=== PATIENT | male | born 1950 | race Caucasian/White ===

== ENCOUNTER → 2021-04-20 | Outpatient (CLI) | payer MEDICARE ==
[~2021-04-20] MED LIST: DEXAMETHASONE PRES.FREE 10 MG/ML VIAL. ONE; IOHEXOL 180 MG/ML 10 ML VIAL. ONE; MAGN250T10 PO; VITA400T6 PO; VITA80003 PO; ZINC50TA33 PO
--- NOTE | 2021-04-20 09:45 | PDOC1 ---
INITIAL PAIN CONSULT DATE OF SERVICE: DOS: DATE: 04/20/21 TIME: 09:40 CHIEF COMPLAINT: Chief Complaint: Low back and right lower extremity pain HISTORY OF PRESENT ILLNESS: 70-year-old male presents with history of pain low back right lower extremity for many years but worse over the past 2 to 3 months without any specific injury or accident that he is aware of pain increasing low back rating the right lower extremity posterior gluteus posterior thigh posterior calf with some numbness in the knee as well as some lateral pain on the leg mostly in the posterior aspect patient reports is worse with walking standing change positions exercising patient plays recreational basketball at least once a week and has been bothering him causing some significant pain in the back and the leg limiting his ability to perform activities patient reports it wakes him from sleep least once a night side effect his bowel bladder control does affect his ability to walk although is not use any assistive devices patient has had physical therapy in the past and is doing exercises with this as well currently also has had epidural injections about 5 years ago when he had some similar symptoms were on his left side which resolved the problem patient has taken recent steroid pack which helped the pain decreased to a moderate extent as well patient reports his disability rating 0-10 10 being the worst is a 4 with family home responsibilities and self-care 7 with recreation and occupation 3 with social activity 0 sexual behavior and life support activities patient did have an MRI scan lumbar spine showing multilevel degenerative changes with the moderate degenerative central spinal stenosis at L3-4 and greatest neuroforaminal narrowing of moderate to severe degree on the right at L5-S1. Patient reports the pain is stabbing and throbbing in the back shooting in the right lower extremity can be intermittent intensity but always present changes with activity worse with standing walking greater than 15 to 20 minutes tingling and numbness in the leg especially in the knee radiating and aching in the back. Patient reports no loss of motor function no bowel or bladder incontinence but significant debility of the right lower extremity. PAST MEDICAL HISTORY: PMH: Arthritis, hearing loss, Mnire's disease PREVIOUS SURGERIES: Past Surgical Hx: No previous surgery CURRENT MEDICATIONS: Current Meds: Active Scripts Medications Dose Route/Sig Max Daily Dose Days Date Category Magnesium (Magnesium Oxide) 250 Mg Tablet 1 Tab PO DAILY 30 04/20/21 Reported Vitamin E (Vitamin E Mixed) 400 Unit Tablet 1 Tab PO QHS 30 04/20/21 Reported Vitamin A 2,400 Mcg Capsule Unknown Dose PO DAILY 04/20/21 Reported Zinc (Zinc Amino Acid Chelate) 50 Mg Tablet 50 Mg PO DAILY 04/20/21 Reported ALLERGIES; Allergies: Coded Allergies: No Known Drug Allergies (Unverified , 04/20/21) FAMILY HISTORY: Family Hx: No major medical problems or conditions he is aware of. SOCIAL HISTORY: Social Hx: Patient is under alcohol does not smoke not use any illegal illicit recreational drugs lives with spouse is semiretired lives in [facility] REVIEW OF SYSTEMS: ROS: Positive for those items mentioned in history of present illness, all systems are reviewed, otherwise negative ,and are complete full and well-documented on patient's chart. PHYSICAL EXAM: VS: Blood pressure is 149/89 pulse 57 respirations 20 temperature 98.0 F height is 5 feet 9 inches weight is 188 pounds. PE: PHYSICAL EXAMINATION: GENERAL: The patient is awake, alert, oriented, appropriate, very pleasant in demeanor HEENT: Shows normocephalic, atraumatic. Extraocular movements are intact and symmetrical. Oral cavity: Mucous membranes moist and pink. Dentition is intact. NECK: Shows anterior throat supple without palpable lymphadenopathy noted. Swallow reflex symmetrical. CHEST: Shows normal on inspection. Breath sounds are clear bilaterally, distant no rales rhonchi wheezes auscultated. HEART: Shows S1, S2 clear. No murmurs auscultated. ABDOMEN: Soft, nontender, nondistended. No palpable organomegaly is noted. BACK: Shows spine grossly in the midline. Normal-appearing cervical lordotic curvature. There is slightly increased thoracic kyphosis, some minor flattening of the lumbar lordotic curvature. Lumbar paraspinous muscles show symmetrical on inspection, on palpation shows some moderate tenderness diffusely throughout the upper, middle and lower distribution of the paraspinous muscles bilaterally and also into the lower thoracic paraspinous musculature, firm and tender, but without specific trigger points, without radiation of pain. The patient has good rotational motion of the lumbar spine, both laterally as well as extension and flexion without significant difficulty. No tenderness over the spinous processes, sacrum or sacroiliac regions. EXTREMITIES: Lower extremities show deep tendon reflexes 2+ in the patellar and tendo calcaneus tendons. Motor exam is 4 on a scale of 5 with right dorsiflexion, extension, quadriceps and hamstring flexion and 5/5 on the left. Peripheral pulses are 2+ posterior tibial. No peripheral edema is noted bilaterally. Lower extremities are warm and dry to touch, equal in color and appearance. Straight leg raise noted to be positive on the right about 45 degrees, left side is []. Gaenslen's and Dionisio's maneuvers are negative bilaterally. The patient is able to stand, stand on his toes without significant difficulty or loss of balance, walks with a slight favoring gait does appear to favor the right lower extremity mildly but without any assistive devices to ambulate. SKIN: Shows warm and dry, good turgor. No edema. No sores, rashes or bruising throughout. IMPRESSION: Impression: 70-year-old male with long history of low back and lower extremity pain, worse over the past 2 to 3 months. MRI scan lumbar spine as noted Arthritis Hearing loss Plan: Options were discussed the patient including continued physical therapies, medication management as well as interventional techniques. Patient would like to pursue interventional techniques. We discussed a lumbar epidural steroid injection using descriptions as well as anatomical models to describe the procedure. Risks were discussed including but not limited to: Bleeding, infection, possibility of epidural hematoma and subsequent neurological compromise, dural puncture, headaches, spinal cord and/or nerve damage, side effects of steroid medication, and poor results regarding pain control. Patient understands and wished to proceed. Patient will return to the clinic in approximately 2 weeks for follow-up, was counseled as to return appointment, activity level, and side effect to be aware of. Procedure is lumbar epidural steroid injection under local anesthetic using sterile prep and drape at the L5-S1 level using C-arm fluoroscopic guidance in both AP and lateral views medications injected is 20 mg dexamethasone +10mL preservative-free normal saline and 2 mL contrast- condition at discharge is stable patient tolerated procedure well had no complications. RAMIRO HEARD MD Apr 20, 2021 09:45
--- NOTE | 2021-04-20 09:46 | PDOC4 ---
Procedure Note: ICD 10 Code: ICD 10 Code: M54.17 M5 1.87 M4 8.07 Procedure Note: Patient was consented for lumbar epidural steroid injection with fluoroscopic guidance. Risks were discussed including but not limited to: Bleeding, infection, possibility of epidural hematoma and subsequent neurological compromise, dural puncture, headaches, spinal cord and/or nerve damage, side effects of steroid medication, and poor results regarding pain control. Patient understands and wished to proceed. Procedure is lumbar epidural steroid injection under local anesthetic using st erile prep and drape at the L5-S1 level using C-arm fluoroscopic guidance in both AP and lateral views medications injected is 20 mg dexamethasone +10mL preservative-free normal saline and 2 mL contrast- condition at discharge is stable patient tolerated procedure well had no complications. RAMIRO HEARD MD Apr 20, 2021 09:46
== END | disposition home or self-care (01) ==
LOC: PNCL 07:59
PROVIDERS: ATTEND Anesthesiology
DX: M51.17 Intervertebral disc disorders with radiculopathy, lumbosacral region (principal); M48.07 Spinal stenosis, lumbosacral region; M19.90 Unspecified osteoarthritis, unspecified site; Z79.899 Other long term (current) drug therapy
CPT/HCPCS: 62323; G0463; J1100; Q9965

== ENCOUNTER → 2021-05-04 | Outpatient (CLI) | payer MEDICARE ==
[~2021-05-04] MED LIST changes: -VITA80003 PO; +VITA80006 PO
--- NOTE | 2021-05-04 08:52 | PDOC ---
Progress Note - Pain Clinic Date of Service: DOS: DATE: 05/04/21 TIME: 08:49 Diagnosis: Dx: Lumbar radiculopathy with lumbar degenerative disease and lumbar spinal stenosis History or Present Illness: HPI: 70-year-old male returns for follow-up status post lumbar epidural steroid injection x1. Patient reports about 20% improvement in the low back and right lower extremity but only minimal patient reports now he is having some instability and some weakness in the leg which is much more noticeable than what he had before patient reports is not giving out on him but he is stumbled a couple times but not fallen patient reports pain is a 7 on scale 10 is worse over the past week 5 on average 1 its least is a 5 today patient reports is worse with walking and standing changing positions better with sitting or laying down generally does not awaken her from sleep at night patient scribes aching in the back tingling in the leg shooting in the right lower extremity posterior gluteus posterior thigh posterior calf some in the anterior aspect as well but mostly posteriorly patient reports again a new finding of increased weakness in the right leg with standing or walking but is only happened a few times since his last visit. Patient reports no bowel or bladder incontinence or other comp laints. Physical Exam: VS: Blood pressure is 129/51 pulse 61 respirations 16 temperature 97.8 F height 5 feet 9 inches weight is 187 pounds. PE: PHYSICAL EXAMINATION: GENERAL: The patient is awake, alert, oriented, appropriate, very pleasant in demeanor HEENT: Shows normocephalic, atraumatic. Extraocular movements are intact and symmetrical. Patient wearing eyeglasses. Oral cavity: Mucous membranes moist and pink. Dentition is intact. NECK: Shows anterior throat supple without palpable lymphadenopathy noted. Swallow reflex symmetrical. CHEST: Shows normal on inspection. Breath sounds are clear bilaterally, no rales or rhonchi auscultated. HEART: Shows S1, S2 clear. No murmurs auscultated. ABDOMEN: Soft, nontender, nondistended. No palpable organomegaly is noted. BACK: Shows spine grossly in the midline. Normal-appearing cervical lordotic curvature. There is mildly increased thoracic kyphosis, some minor flattening of the lumbar lordotic curvature. Lumbar paraspinous muscles show symmetrical on inspection, on palpation shows some moderate tenderness diffusely throughout the upper, middle and lower distribution of the paraspinous muscles, but without specific trigger points, without radiation of pain. The patient has good rotational motion of the lumbar spine, both laterally as well as extension and flexion without significant difficulty. EXTREMITIES: Lower extremities show deep tendon reflexes 2+ in the patellar and tendo calcaneus tendons. Motor exam is 4 on a scale of 5 with right dorsiflexion, extension, quadriceps and hamstring flexion and 5/5 on the left. Peripheral pulses are 1+ posterior tibial. No peripheral edema is noted bilaterally. Lower extremities are warm and dry. SKIN: Shows warm and dry, good turgor. No edema. No sores, rashes or bruising throughout. Procedure: Procedure: Options discussed with patient. Patient's old chart was viewed as his current medication regimen updated current review of systems updated today as well. We will proceed with a lumbar epidural steroid injection today with fluoroscopic guidance. Risks were discussed including but not limited to: Bleeding, infection, possibility of epidural hematoma and subsequent neurological compromise, dural puncture, headaches, spinal cord and/or nerve damage, side effects of steroid medication, and poor results regarding pain control. Patient understands and wished to proceed. Patient will return to the clinic in approximately 2 weeks for follow-up, was counseled as to return appointment, activity level, and side effect to be aware of. Medication Injected: Med Injected: Procedure is lumbar epidural steroid injection under local anesthetic using sterile prep and drape at the L5-S1 level using C-arm fluoroscopic guidance in both AP and lateral views medications injected is 20 mg dexamethasone +10mL preservative-free normal saline and 2 mL contrast- condition at discharge is stable patient tolerated procedure well had no complications. Condition at Discharge: Condition at Discharge: Condition at discharge is stable, patient tolerated the procedure well and had no complications. RAMIRO HEARD MD May 04, 2021 08:52
--- NOTE | 2021-05-04 08:53 | PDOC4 ---
Procedure Note: ICD 10 Code: ICD 10 Code: M54.17 M51.7 M4 8.07 Procedure Note: Patient was consented for lumbar epidural steroid injection with fluoroscopic guidance. Risks were discussed including but not limited to: Bleeding, infection, possibility of epidural hematoma and subsequent neurological compromise, dural puncture, headaches, spinal cord and/or nerve damage, side effects of steroid medication, and poor results regarding pain control. Patient understands and wished to proceed. Procedure is lumbar epidural steroid injection under local anesthetic using ster ile prep and drape at the L5-S1 level using C-arm fluoroscopic guidance in both AP and lateral views medications injected is 20 mg dexamethasone +10mL preservative-free normal saline and 2 mL contrast- condition at discharge is stable patient tolerated procedure well had no complications. RAMIRO HEARD MD May 04, 2021 08:53
== END | disposition home or self-care (01) ==
LOC: PNCL 08:06
PROVIDERS: ATTEND Anesthesiology
DX: M51.16 Intervertebral disc disorders with radiculopathy, lumbar region (principal); M48.061 Spinal stenosis, lumbar region without neurogenic claudication; Z79.899 Other long term (current) drug therapy
CPT/HCPCS: 62323; J1100; Q9965